=== PATIENT | male | born 1990 | race Caucasian/White ===

== ENCOUNTER 2020-01-13 08:44 | Emergency (ER) | payer MEDICAID, OTHER ==
[2020-01-13 08:53] VITALS: BP 155/85
--- NOTE | 2020-01-13 09:16 | UC ---
Laceration HPI - HPI Summary HPI Summary: Patient is a 29yo male presenting with laceration of left great toe that happened ~3 hours ago when a crepe box tender fell onto it. Patient states it bled immediately and has not completely stopped. The patient admits that he took the drug roberto carlos last night around 2300 and has also been drinking some. States he initially went to the hospital but then left when they tried to numb his toe. He states he does not want lidocaine before suturing "because the government is trying to give me covid." Patient states that he would like suturing done as long as he does not get an injection with anything for anesthetic. Denies current pain. States last tetanus shot was 6 months ago. - History Of Current Complaint Chief Complaint: UCLaceration Stated Complaint: LEFT BIG TOE LACERATION Hx Obtained From: Patient Pain Intensity: 0 Pain Scale Used: 0-10 Numeric - Allergies/Home Medications Allergies/Adverse Reactions: Allergies Allergy/AdvReac Type Severity Reaction Status Date / Time No Known Allergies Allergy Verified 01/13/20 08:53 Home Medications: Home Medications NK [No Home Medications Reported] 01/13/20 [History Confirmed 01/13/20] PMH/Surg Hx/FS Hx/Imm Hx - Surgical History Surgical History: None - Social History Alcohol Use: None Substance Use Type: Other - roberto carlos Substance Use Comment - Amount & Last Used: roberto carlos Smoking Status (MU): Heavy Every Day Tobacco Smoker Review of Systems All Other Systems Reviewed And Are Negative: No Constitutional: Positive: Negative Skin: Positive: Other - left great toe laceration Respiratory: Positive: Negative Cardiovascular: Positive: Negative Gastrointestinal: Positive: Negative Musculoskeletal: Negative: Arthralgia, Decreased ROM Neurological/Mental Status: Positive: Negative Physical Exam Triage Information Reviewed: Yes Appearance: Well-Appearing, No Pain Distress, Well-Nourished Vital Signs: Initial Vital Signs Temp 98.8 F 01/13/20 08:48 Pulse 75 01/13/20 08:48 Resp 15 01/13/20 08:48 BP 155/85 01/13/20 08:48 Pulse Ox 97 01/13/20 08:48 Vital Signs Reviewed: Yes Eyes: Positive: Conjunctiva Inflamed ENT: Positive: Hearing grossly normal Neck: Positive: Supple Respiratory: Positive: No respiratory distress, No accessory muscle use Cardiovascular: Positive: Brisk Capillary Refill - <2 sec Musculoskeletal: Positive: ROM Intact - left great toe flexion/extension intact Neurological Exam: Other - sensation grossly intact Neurological: Positive: Alert Psychological: Positive: Decreased Age Appropriate Behavior Skin: Positive: Other - ~1.5 horizontal laceration of dorsal left great toe over IP joint, minimally bleeding Laceration Course/Dx - Course/Dx Course Of Treatment: The patient's laceration was irrigated and a dressing was applied. Dr. Golden and myself both discussed with the patient that we would not repair his laceration without an anesthetic. The patient refused to have the laceration injected with lidocaine numerous times, even after risk of delayed wound closure , infection, and even loss of toe was discussed with the patient. Patient continued to insist that "the government could give him covid 19 from any kind of injection." The patient voiced understanding of possible risks and stated he would go home and try to suture himself with a needle and thread. I strongly advised the patient not to do this because it will put him at greater risk of infection. Patient, again, refused proper closure of the wound and stated he would close it with butterfly stitches instead. I informed the patient that he will need to sign AMA. Informed him that if he changes his mind, he needs to return within 12 hours of having the wound or he risks not being able to close the wound. The patient voiced understanding and agreed to sign AMA. - Differential Dx - Laceration/Wound Differental Diagnoses: Laceration - Diagnosis Provider Diagnosis: Laceration of left great toe Discharge ED - Sign-Out/Discharge Documenting (check all that apply): Patient Departure All imaging exams completed and their final reports reviewed: No Studies - Discharge Plan Condition: Stable Disposition: AGAINST MEDICAL ADVICE Referrals: Sri Truong MD [Medical Doctor] - - Billing Disposition and Condition Condition: STABLE Disposition: Against Medical Advice - Attestation Statements Provider Attestation: I was available for consult. This patient was seen by the JAROCHO. The patient was presented to me and also seen by by me . Brief physical exam: 1.5 cm superficial horizontal laceration of the great toe , no bleeding noted. I had a lengthy discussion with him about the procedure and reassured him no- one is injecting covid. It's just numbing medication which will reduce the pain associated with the procedure but he declined. I was hesitant to do procedure without any lidocaine as he can get agitated and kick around due to pain. Risks of not following medical advise were discussed and though he took roberto carlos last night he is alert and oriented and understands. But given his recent drug use and his delusion about lidocaine injection and not letting us use lidocaine, I advised him to go to ER abut he declines and eventually left AMA. -Jb Golden MD
== END 2020-01-13 09:35 | disposition left against medical advice (07) ==
LOC: UCCORT 08:44
DX: S91.112A Laceration without foreign body of left great toe without damage to nail, initial encounter (principal); W26.8XXA Contact with other sharp object(s), not elsewhere classified, initial encounter; Y92.9 Unspecified place or not applicable; F17.200 Nicotine dependence, unspecified, uncomplicated
CPT/HCPCS: 99203; G0463